=== PATIENT | male | born 1955 | race Caucasian/White ===

== ENCOUNTER 2017-03-16 18:45 | Emergency (ER) | payer OTHER ==
--- NOTE | ~2017-03-16 | CT2 ---
[facility] A Service of [facility] RADIOLOGY TEXT RESULTS PATIENT: KRYSTLE DAWSON LOCATION: SED : 54 UNIT #: [id number] AGE: [address]: Saad Cabrera MD SEX: M ORDER DR: [id number] [address] [address] [id number] MR#: [id number] Acc #: [id number] NAME: KRYSTLE DAWSON : 1955 SEX: M STUDY DATE/TIME: 03/16/2017 20:14 UNIT: SED ROOM: STUDY DESCRIPTION: CT Abd and Pelv W Cont Attending Physician: Saad Cabrera M.D. Ordering Physician: Saad Cabrera M.D. Primary Care Physician: Luis Hilton M.D. MEDICAL IMAGING REPORT This report is preliminary unless electronic signature is present. EXAM CT abdomen and pelvis with IV contrast. HISTORY Abdomen pain for 10 days. Constipation and diarrhea today. FINDINGS CT abdomen and pelvis was performed with IV contrast. This CT exam was performed with one or more of the following radiation dose reduction techniques: automatic exposure control, adjustment of mA and/or kV according to patient size, and iterative reconstruction. CT abdomen. Fatty infiltration of the liver. No biliary dilatation. Cholecystectomy. Borderline to mild splenic enlargement measuring 13.5 cm. Generalized pancreatic parenchymal atrophy. Horseshoe kidney. No hydronephrosis. The adrenal glands are normal. Normal caliber abdominal aorta. No bowel dilatation. Moderate wall thickening of the cecum and proximal ascending colon with mild adjacent pericolonic stranding and borderline enlarged lymph nodes medial to the proximal ascending colon measuring up to 9 mm in short axis dimension. Findings could be secondary to segmental infectious or inflammatory colitis. Given the length of involvement of close to 7 cm, neoplasm is considered much less likely. Correlation to the patient's history and symptoms is recommended and consider followup CT or colonoscopy to ensure resolution of these findings. No ascites. Appendectomy. CT pelvis Minimal free fluid in the pelvis. No bowel dilatation. No abscess. Mild prostatic enlargement. Urinary bladder is normal. [facility] A Service of [facility] RADIOLOGY TEXT RESULTS PATIENT: KRYSTLE DAWSON LOCATION: SED : 54 UNIT #: [id number] AGE: [address]: Saad Cabrera MD SEX: M ORDER DR: IMPRESSION 1. Moderate circumferential wall thickening of the cecum and proximal ascending colon over a length of close to 7 cm with adjacent pericolonic stranding and borderline enlarged lymph nodes medial to the proximal ascending colon. Findings favor short-segment infectious or inflammatory colitis. Neoplasm is considered less likely particularly given the length of involvement, but correlation to the patient's symptoms and history is recommended and either followup short-term repeat CT after appropriate assessment and treatment or followup colonoscopy should be considered. 2. Horseshoe kidney incidentally noted. No hydronephrosis. 3. Appendectomy. Dictated by... Joe Herndon M.D. THIS IS AN ELECTRONICALLY VERIFIED REPORT Joe Herndon M.D. at 03/17/2017 2:38 PM QUINN/dian TD: 03/17/2017 10:51 JOB #: [id number] MEDICAL IMAGING REPORT Page 1 of 1
[~2017-03-16 18:45] MED LIST changes: -HYDROCODON-ACE1 EAC9 PO; -MOVANTIK12.5 MG
[2017-03-16] MEDS ORDERED: MOVANTIK12.5 MG (18:49)
[2017-03-16 19:46] LABS: BASOPHIL% 0.1 % (0-2.5); HEMATOCRIT 36.2 % (38.0-50.0); LYMPHOCYTE# 2.3 X10e3 (1.0-3.5); LYMPHOCYTE% 26.6 % (17.0-45.0); MEAN CELL VOLUME 81.4 FL (83-96); MEAN CORPUSCULAR HGB CONC 33.1 g/dL (30-36); MEAN PLATELET VOLUME 6.8 FL (6.5-11.5); MONOCYTE# 0.2 X10e3 (0-1.0); MONOCYTE% 2.4 % (3.0-12.0); NEUTROPHIL# 6.2 X10e3 (1.5-7.1); NEUTROPHIL% 70.9 % (40-75); PLATELET COUNT 127 X10e3 (140-420); RED BLOOD COUNT 4.45 X10e (3.90-5.60); RED CELL DISTRIBUTION WIDTH 14.3 % (11.0-15.5); WHITE BLOOD COUNT 8.7 X10e3 (4.0-10.5)
[2017-03-16 19:50] LABS: DIFF IND NO
[2017-03-16 20:05] LABS: ALBUMIN SERUM 4.2 g/dL (3.5-5.0); BILIRUBIN, DIRECT 0.1 mg/dL (0.0-0.2); BILIRUBIN,TOTAL 1.1 mg/dL (0.2-2.0); BUN/CREATININE RATIO 17.27; CALCIUM SERUM 9.7 mg/dL (8.4-10.2); CREATININE SERUM 1.1 mg/dL (0.6-1.4); GLOM FILT RATE Estimated 71.6 mL/min (>60); POTASSIUM 4.1 mmol/L (3.5-5.1); PROTEIN TOTAL SERUM 7.5 g/dL (6.0-8.3)
[2017-05-13] MEDS ORDERED: HYDROCODON-ACE1 EAC9 PO (15:17)
== END 2017-03-16 21:49 | disposition home or self-care (01) ==
LOC: SED 18:45
PROVIDERS: Emergency Medicine
DX: R10.9 Unspecified abdominal pain (principal); R19.7 Diarrhea, unspecified; D64.9 Anemia, unspecified; D69.6 Thrombocytopenia, unspecified; Z79.899 Other long term (current) drug therapy
CPT/HCPCS: 36415; 74177; 80048; 80076; 83690; 85025; 96361; 96374; 96375; 99284; J2270; J2405; Q9967

== ENCOUNTER → 2017-03-16 | Outpatient (CLI) | payer OTHER ==
[~2017-03-16] MED LIST: CIPRO PO; FLEXERIL; FLEXERIL10 MG PO; GLUCOPHAGE500 MG PO; HUMIRA20 MG/0.4; HYDROCODON-ACE1 EAC9 PO; IBUPROFEN400 MG PO; MEDROL DOSEPAK4 MG PO; METFORMIN PO; METHADONE; METHADOSE; METHADOSE PO; METHADOSE10 MG PO; MOVANTIK12.5 MG; PHENERGAN25 MG PO; PRAVACHOL PO; ROBAXIN500 MG PO; [UNRECOGNIZED DRUG - REMARK]
--- NOTE | ~2017-03-16 | CR4 ---
[facility] A Service of [facility] RADIOLOGY TEXT RESULTS PATIENT: KRYSTLE DAWSON LOCATION: SRAD : 54 UNIT #: [id number] AGE: [address]: Adelaida Hilton MD SEX: M ORDER DR: [id number] [address] [address] [id number] O MR#: [id number] Acc #: [id number] NAME: KRYSTLE DAWSON : 1955 SEX: M STUDY DATE/TIME: 03/16/2017 0956 UNIT: SRAD ROOM: STUDY DESCRIPTION: CR Abdomen Flat Upright or Dec Attending Physician: Adelaida Hilton M.D. Referring Physician: Adelaida Hilton M.D. Ordering Physician: Adelaida Hilton M.D. Primary Care Physician: Luis Hilton M.D. MEDICAL IMAGING REPORT This report is preliminary unless electronic signature is present. EXAM Abdomen, supine and upright, 03/16/2017, 0956 hours. CLINICAL HISTORY 61-year-old man with a 3-week history of lower and mid abdominal pain. History of leukemia. COMPARISON 08/30/2016, CT abdomen and pelvis. FINDINGS Supine and upright views of the abdomen demonstrate right upper quadrant clips consistent with prior cholecystectomy. There is a single clip in the right lower quadrant without change. There is a nonspecific bowel gas pattern. There is no distension, wall thickening, or increased amount of stool. No suspicious calcifications. IMPRESSION Nonspecific bowel gas pattern with no evidence of obstruction, free air, or bowel wall thickening. No suspicious calcifications. Cholecystectomy change. Dictated by... Pascale Amador M.D. THIS IS AN ELECTRONICALLY VERIFIED REPORT Pascale Amador M.D. at 03/17/2017 9:24 AM JB/sangita TD: 03/16/2017 17:23 [facility] A Service [facility] RADIOLOGY TEXT RESULTS PATIENT: KRYSTLE DAWSON LOCATION: SRAD : 54 UNIT #: [id number] AGE: [address]: Adelaida Hilton MD SEX: M ORDER DR: JULIA #: [id number] MEDICAL IMAGING REPORT Page 1 of 1
== END | disposition home or self-care (01) ==
LOC: SRAD 09:17
DX: R10.9 Unspecified abdominal pain (principal)
CPT/HCPCS: 74020